=== PATIENT | female | born 1975 | race Caucasian/White ===

== ENCOUNTER 2022-11-19 10:04 | Day surgery (SDC) | payer BC ==
[2022-11-17 09:09] LABS: HCG,QUAL RESULT NEGATIVE (NEGATIVE)
[~2022-11-19] VITALS: Ht 162.6 cm; Wt 63.0 kg
[2022-11-19 11:41] LABS: HEMATOCRIT 23.6 % (36-48)
[2022-11-19] MEDS ORDERED: ONDANSETRON HCL 4 MG/2 ML VIAL IVP PRN (12:30)
[2022-11-19] MEDS ORDERED: LR 1,000 ML IV SCH (12:30)
[2022-11-19] MEDS ORDERED: HYDROmorphone 2 MG/ML VIAL IVP PRN (12:30)
[2022-11-19] MEDS ORDERED: ETOMIDATE 20 MG/ 10 ML VIAL (AMIDATE) ONE (12:35)
[2022-11-19] MEDS ORDERED: SEVOFLURANE 15 MIN GAS INH ONE (12:35)
[2022-11-19] MEDS ORDERED: KETOROLAC TROMETHAMINE 30 MG VIAL ONE (12:35)
[2022-11-19] MEDS ORDERED: MIDAZOLAM HCL 5 MG/ML VIAL (VERSED) IV ONE (12:35)
[2022-11-19] MEDS ORDERED: fentaNYL CITRATE/PF 100 MCG/2 ML AMP ONE (12:35)
[2022-11-19] MEDS ORDERED: LR 1,000 ML IV.SOLN IV ONE (12:35)
[2022-11-19] MEDS ORDERED: LIDOCAINE 2%, 20 ML MDV ONE (12:35)
[2022-11-19] MEDS ORDERED: NS 1000 ML IV.SOLN IV ONE (12:35)
[2022-11-19] MEDS ORDERED: ONDANSETRON HCL 4 MG/2 ML VIAL ONE (12:35)
[2022-11-19] MEDS ORDERED: METOCLOPRAMIDE HCL 10 MG/2 ML VIAL ONE (12:35)
[2022-11-19 13:56] VITALS: BP_SYST 120
== END 2022-11-19 13:45 | disposition home or self-care (01) ==
LOC: SDS 10:04 → SMU 10:05 → SDS 13:45
PROVIDERS: ATTEND Obstetrics & Gynecology
DX: N92.0 Excessive and frequent menstruation with regular cycle (principal)
CPT/HCPCS: 84703; 87081; 58563; 85018; 86886; 86900; 86901; 36415; J3490; J1885; J2001; J2765; J2250; J2405; J3010; J7120; J7030